=== PATIENT | male | born 1970 | race Caucasian/White ===

== ENCOUNTER 2017-05-02 07:03 | Day surgery (SDC) | payer OTHER ==
[~2017-05-02 07:03] MED LIST: Buffered Lidocaine 0.9% SYRIN* 5 ML/SYR SYRINGE INTRADERM ONE; Dexamethasone IV* 4 MG/ML 1 ML (4 MG) IV SLOW PU ONE; Metoclopramide IV* 5 MG/ML 2 ML VIAL IV SLOW PU ONE
[2017-05-02] MEDS ORDERED: Buffered Lidocaine 0.9% SYRIN* 5 ML/SYR SYRINGE ONE (07:30)
[2017-05-02] MEDS ORDERED: Metoclopramide IV* 5 MG/ML 2 ML VIAL ONE (07:30)
[2017-05-02] MEDS ORDERED: Dexamethasone IV* 4 MG/ML 1 ML (4 MG) ONE (07:30)
[2017-05-02] MEDS ORDERED: Lidocaine 2% EPI 1:200000 MPF* 20 ML VIAL ONE (07:31)
[2017-05-02] MEDS ORDERED: Oxymetazoline 0.05% NASAL SPR* 15 ML BTL ONE (07:31)
[2017-05-02] MEDS ORDERED: fentaNYL* 50 MCG/ML 2 ML VIAL (100 MCG VIAL) ONE ×2 (08:06→09:51)
[2017-05-02] MEDS ORDERED: Midazolam* 1 MG/ML 2 ML VIAL (2 MG) ONE (08:06)
[2017-05-02] MEDS ORDERED: Ondansetron INJ* 2 MG/ML VIAL IV PRN (09:08)
[2017-05-02] MEDS ORDERED: HYDROcodone/ACETAMIN 5-325 MG* 1 TAB PO PRN (09:08)
[2017-05-02] MEDS ORDERED: Scopolamine 1.5 mg* PATCH TRANSDERM PRN (09:08)
[2017-05-02] MEDS ORDERED: HYDROmorphone* 1 MG/ML 1 ML CARPUJECT IV PRN (09:08)
[2017-05-02] MEDS ORDERED: DiMENhydriNATE IV* 50 MG/ML VIAL IV PUSH PRN (09:08)
[2017-05-02] MEDS ORDERED: Propofol* 10 MG/ML 20 ML BTL IV PUSH ONE (09:18)
[2017-05-02] MEDS ORDERED: Phenylephrine IV* 40 MCG/ML 10 ML SYRINGE ONE (09:18)
[2017-05-02] MEDS ORDERED: Lidocaine 2% PF * 5 ML VIAL ONE (09:18)
[2017-05-02] MEDS ORDERED: Ondansetron INJ* 2 MG/ML VIAL ONE (09:18)
[2017-05-02] MEDS: fentaNYL* 50 MCG/ML 2 ML VIAL (100 MCG VIAL) IV PRN ×2 (09:53→10:21)
[2017-05-02] MEDS ORDERED: oxyCODONE/Acetamin 5/325 MG* TAB ONE (10:21)
[2017-05-02] MEDS ORDERED: HYDROcodone/ACETAMIN 5-325 MG* 1 TAB ONE (10:23)
[2017-05-02 10:44] VITALS: BP 154/90
--- NOTE | 2017-05-02 15:30 | OP ---
DATE OF OPERATION: 05/02/17 - [facility] DATE OF : 74 SURGEON: Red Lazo MD ANESTHESIOLOGIST: Jihan Butler MD ANESTHESIA: General PRE-OP DIAGNOSES: Deviated nasal septum and hypertrophied nasal turbinates with nasal dyspnea. POST-OP DIAGNOSES: Deviated nasal septum and hypertrophied nasal turbinates with nasal dyspnea. OPERATIVE PROCEDURE: Septoplasty with submucosal resection of the inferior turbinate. BRIEF HISTORY: This 47-year-old gentleman with a history of significant nasal dyspnea to the point where he tried nasal steroids, were unsuccessful for many months. Then he was using oxymetazoline q.4 h. and may be even more frequently than that just to get nasal respite. DESCRIPTION OF PROCEDURE: The patient was taken to the operating room, general anesthesia was given, the patient was intubated with LMA. Nose was decongested with Afrin placed pledgets. Subsequently 2% lidocaine with epinephrine was infiltrated to the mucosa of the septum in both sides in the inferior turbinate. Left hemitransfixion incision created. Mucoperichondrial flap was elevated. Quadrangular cartilage was vomer ethmoidal complex. Inferior- most portion of the cartilage was removed. Portion of the vomer ethmoidal complex where a septal spur was noted, was removed. Quadrangular cartilage was placed to the midline, secured with multiple chromic sutures. Subsequently a Trinity splint was applied, which was secured with Prolene. We then turned our attention to the inferior turbinate. A small incision was made in the inferior turbinate mucosa. Submucosal resection was carried out of the inferior turbinate bone and submucosal tissue. Chris packs were then placed for hemostasis. The patient was then awakened, sent to recovery room in stable condition. Instrument and sponge count correct. Blood loss minimal. [id number]/[facility] #: [id number] [facility] [place] [facility]ISION[facility]
[2017-05-05] MEDS ORDERED: Scopolomine PATCH Remove* 1 NOTE MISC PATCH OFF ONE (09:09)
== END 2017-05-02 10:46 | disposition home or self-care (01) ==
LOC: OR 07:03
PROVIDERS: ATTEND Otolaryngology
DX: J34.2 Deviated nasal septum (principal); J34.3 Hypertrophy of nasal turbinates; R06.09 Other forms of dyspnea; J31.0 Chronic rhinitis; Z87.891 Personal history of nicotine dependence
CPT/HCPCS: A9270-GY; J1100; J2250; J2405; J2704; J2765; J3010